=== PATIENT | female | born 1990 | race Hispanic/Latino ===

== ENCOUNTER 2024-02-11 02:53 | Emergency (ER) | payer SELFPAY ==
[2024-02-11] MEDS ORDERED: Lidocaine 1% w/Epinephrine 1:100K 20 ML VIAL ONE (03:10)
== END 2024-02-11 03:46 | disposition home or self-care (01) ==
LOC: ERS 02:53
DX: K02.9 Dental caries, unspecified (principal)
CPT/HCPCS: 99282

== ENCOUNTER 2024-02-11 05:47 | Emergency (ER) | payer SELFPAY ==
[2024-02-11] MEDS ORDERED: HYDROcodone/Acetaminophen 5/325 mg Tablet ONE (07:12)
== END 2024-02-11 07:19 | disposition home or self-care (01) ==
LOC: ERS 05:47
DX: K04.7 Periapical abscess without sinus (principal); Z86.73 Personal history of transient ischemic attack (TIA), and cerebral infarction without residual deficits
CPT/HCPCS: 99282